=== PATIENT | female | born 1935 | race Caucasian/White ===

== ENCOUNTER → 2017-11-15 13:38 | Observation (INO) ==
[2017-11-14 16:44] VITALS: BMI 32.2
[2017-11-14] MEDS: ENOXAPARIN 40 MG/0.4 ML INJECTION SQ SCH (17:59)
--- NOTE | 2017-11-14 18:06 | Echocardiogram ---
DATE OF PROCEDURE November 14, 2017 This is a two-dimensional echo with spectral Doppler, color-flow and M-mode. It was obtained in a patient with abnormal EKG. This is a technically difficult study. Left atrial dimension is normal. Left ventricular end-diastolic dimension is normal. Left ventricular wall thickness is normal. LV systolic function is normal with ejection fraction of 55%. Right atrium is normal. Right ventricle is normal. Aortic root dimension is normal. Mitral valve is morphologically normal with mild mitral regurgitation. Aortic valve shows fibrocalcific changes with no stenosis or insufficiency. Tricuspid valve shows mild tricuspid regurgitation with normal estimated pulmonary artery systolic pressure of 16. Pulmonary valve shows mild pulmonary insufficiency. There is no pericardial effusion. IMPRESSION 1. Technically difficult study. 2. Normal LV systolic function with ejection fraction of 55%. 3. Mild mitral regurgitation. 4. Aortic sclerosis. 5. Mild tricuspid regurgitation with normal estimated pulmonary artery systolic pressure of 16. 6. Mild pulmonary insufficiency. MTDD
[2017-11-14] MEDS: MEMANTINE 10 MG PO SCH (21:36)
[2017-11-15 07:51] VITALS: TEMP 97.8
[2017-11-15] MEDS: ENOXAPARIN 40 MG/0.4 ML INJECTION SQ SCH (08:46)
[2017-11-15] MEDS: MEMANTINE 10 MG PO SCH (08:52)
--- NOTE | 2017-11-15 12:02 | Discharge Summary ---
Discharge Information Date of admission: 11/14/17 16:10 Anticipated date of discharge: 11/15/17 Attending Physician: Ubaldo Rodriguez MD Primary care physician: Triston Toscano MD abnormal EKG - Laboratory Labs: 11/15/17 04:09 11/15/17 04:09 History of Present Illness HPI: 11/15/17 12:05 Katya is a 82 year old female who was referred to our practice for an abnormal EKG by Melania Beach APRN. She has a history ofdyspnea, HTN, HLD, family history of ischemic heart disease and Lewy body dementia. She denied chest pain, pressure, tightness. Has worsening exertional dyspnea, onset about 1 year ago. Ischemic changes seen and EKG were discussed with Dr. Rodriguez and she was admitted to observation for rule out acute MA. Hospital Course This is a general summary of the patient's hospital course. For more details refer to the complete medical record. Hospital course: Serial troponins were negative - patient is completely asymptomatic -Passed exercise oximetry -Discharge home with outpatient follow up. Time spent with patient: 25 - 35 minutes Resuscitation Status: Full Code Exam Vital signs: Temperature 97.8 F 11/15/17 07:45 Pulse Rate 75 11/15/17 11:01 Respiratory Rate 24 11/15/17 11:01 Blood Pressure 138/110 H 11/15/17 11:01 Pulse Oximetry 96 11/15/17 11:01 - Constitutional no acute distress, well developed, cooperative - Routine HEENT Exam Head: Present: normocephalic ENT: Present: mucous membranes moist - Routine Neck Exam Absent: JVD, carotid bruit - Routine Chest/Breast/Axilla Exam Chest wall: Absent: tenderness - Routine Respiratory Exam Present: CTA bilaterally. Absent: dyspnea, rales, crackles - Routine Cardiovascular Exam Present: RRR, no murmur - Routine Abdominal Exam Present: soft, non tender - Routine Extremities Exam Present: no edema - Routine Skin Exam Present: intact, dry, warm - Routine Neurological Exam Present: alert - Routine Psychiatric Exam Present: normal affect Results 11/15/17 04:09 11/15/17 04:09 Cardiac Enzymes 11/14/17 11/14/17 11/15/17 Range/Units 15:56 22:05 04:09 AST 31 (14-36) U/L Troponin I < 0.012 < 0.012 < 0.012 (0-0.12) ng/ml CBC 11/14/17 11/15/17 Range/Units 15:56 04:09 WBC 7.0 6.3 (4.5-11.0) T/MM3 RBC 5.02 4.85 (4.00-5.20) M/MM3 Hgb 15.9 15.3 (12-16) GM/DL Hct 45.4 44.1 (36-46) % Plt Count 153 146 (130-400) T/MM3 Neut # (Auto) 4.2 (1.8-7.7) T/MM3 Lymph # (Auto) 1.9 (1-4.8) T/MM3 Ocean # (Auto) 0.7 (0-0.8) T/MM3 Eos # (Auto) 0.1 (0-0.5) T/MM3 Baso # (Auto) 0.0 (0-0.2) T/MM3 Comprehensive Metabolic Panel 11/14/17 11/15/17 Range/Units 15:56 04:09 Sodium 144 141 (134-144) MEQ/L Potassium 3.7 3.5 L (3.6-5) MEQ/L Chloride 103 101 (98-107) MEQ/L Carbon Dioxide 27 30 (22-30) MEQ/L BUN 21.0 H 17.0 (7-17) MG/DL Creatinine 0.6 L 0.6 L (0.7-1.2) mg/dL Glucose 105 99 (65-110) MG/DL Calcium 10.7 H 9.9 (8.4-10.2) MG/DL AST 31 (14-36) U/L ALT 34 (1-35) U/L Alkaline Phosphatase 69 (38-126) U/L Total Protein 7.8 (6.3-8.2) g/dL Albumin 4.7 (3.5-5.0) g/dL Intake and Output 11/14/17 11/15/17 11/15/17 22:59 06:59 14:59 Output Total 100 / 100 Balance -100 / -100 Output: Urine 50 / 50 Urine Amount (Catheter) 50 / 50 Other: Urine Appearance Clear Urine Color Yellow Urine Odor Normal # Voids 2 1 3 Weight 165 lb 2.02 oz - Imaging and Cardiology Imaging & Cardiology Narrative: Date of Exam: 11/14/17 Type of Exam(s): US echo doppler complete DATE OF PROCEDURE November 14, 2017 This is a two-dimensional echo with spectral Doppler, color-flow and M-mode. It was obtained in a patient with abnormal EKG. This is a technically difficult study. Left atrial dimension is normal. Left ventricular end-diastolic dimension is normal. Left ventricular wall thickness is normal. LV systolic function is normal with ejection fraction of 55%. Right atrium is normal. Right ventricle is normal. Aortic root dimension is normal. Mitral valve is morphologically normal with mild mitral regurgitation. Aortic valve shows fibrocalcific changes with no stenosis or insufficiency. Tricuspid valve shows mild tricuspid regurgitation with normal estimated pulmonary artery systolic pressure of 16. Pulmonary valve shows mild pulmonary insufficiency. There is no pericardial effusion. IMPRESSION 1. Technically difficult study. 2. Normal LV systolic function with ejection fraction of 55%. 3. Mild mitral regurgitation. 4. Aortic sclerosis. 5. Mild tricuspid regurgitation with normal estimated pulmonary artery systolic pressure of 16. 6. Mild pulmonary insufficiency. 11/17/17 13:58 Discharge Plan - Med Rec/Dispo Referrals/Follow Up: Ubaldo Rodriguez MD [Physician] [facility] Instructions: Myocardial Infarction (DC) Prescriptions: Continue hydroCHLOROthiazide [Hydrochlorothiazide] 25 mg PO DAILY #0 Amlodipine [Norvasc] 10 mg PO DAILY Memantine [Namenda] 10 mg PO BID Citalopram [Celexa] 1.5 tab PO DAILY LORazepam [Ativan] 0.5 mg PO DAILY PRN PRN Reason: Anxiety Aspirin Chewable [ASA] 81 mg PO DAILY Potassium Chloride [Klor-Con M20] 1 tab PO DAILY Hydrocodone/APAP 7.5/325 [[place] 7.5/325] 1 - 2 tab PO Q8H PRN PRN Reason: Pain - Disposition 01 Discharged Home, Self-Care - Dismissal Complete Discharge Instructions are:: Complete
[~2017-11-15 13:38] MED LIST: --POM--AMLODIPINE 10 MG TABLET PO SCH; --POM--CITALOPRAM 20 MG TABLET PO SCH; ASPIRIN 81 MG CHEWABLE TABLET PO SCH; HYDROCODONE/APAP 7.5 MG/325 MG TABLET PO PRN; LORazepam 0.5 MG TABLET PO PRN
[2017-11-15 14:10] VITALS: BP 120/61; PULSE 79; RESP 39; O2SAT 92
== END | disposition home or self-care (01) ==
LOC: CCU
PROVIDERS: ADMIT Internal Medicine Cardiovascular Disease; ATTEND Internal Medicine Cardiovascular Disease

== ENCOUNTER 2017-12-05 13:15 | Inpatient (IN) ==
--- OUTSIDE RECORDS SUMMARY | 2017-12-05 13:29 | External Medical Summary | Referral Summary ---
:1935 Author Organization [facility] (Formerly [facility]3] Address [address] [place] [address] Care Team Providers Name Role Phone No PCP, Pt [place] Primary Care Physician Cydney Aparicio Primary Care Physician No PCP, Pt [facility] Primary Care Physician Larry Vega Primary Care Physician Encounter [facility] [id number] Date(s): 11/06/17 - 11/06/17 [facility]3] [address] [place] [address] [place] Encounter Diagnosis Encounter for staple removal (Discharge Diagnosis) - 11/06/17 Encounter for removal of sutures (Discharge Diagnosis) - 11/06/17 Discharge Disposition: 01-Home or Self Care Attending Physician: Lance Rojas MD Admitting Physician: Lance Rojas MD Vital Signs Most recent to oldest [Reference Range]: 1 Temperature Temporal Artery [36.3-37.8 degC] 36.4 degC (11/06/17 5:17 PM) Peripheral Pulse Rate [60-100 bpm] 77 bpm (11/06/17 5:17 PM) Respiratory Rate [14-20 br/min] 18 br/min (11/06/17 5:17 PM) Blood Pressure [90-140/60-90 mmHg] 132/77 mmHg (11/06/17 5:17 PM) SpO2 94 % (11/06/17 5:17 PM) Problem List Condition Effective Dates Status Health Status Informant Benign essential hypertension Active (disorder)(Confirmed) Wolf's C colon cancer(Confirmed) 2001 Active Colon cancer(Confirmed)1 07/03/01 Resolved CAD (coronary artery Active disease)(Confirmed) Generalized Active osteoarthritis(Confirmed) Edema (finding)(Confirmed) Active Stress incontinence, Active female(Confirmed) H/O hypercalcemia(Confirmed) Active History of colon cancer(Confirmed) Active History of tobacco use(Confirmed) Active Myoclonus (finding)(Confirmed) Active Obesity(Confirmed) Active patient Dermatophytosis of nail(Confirmed) Active Otalgia (finding)(Confirmed) Active Otorrhea (disorder)(Confirmed) Active Pain in limb(Confirmed) Active Pure hypercholesterolemia Active (disorder)(Confirmed) Retinal tear(Confirmed)2 07/03/93 Resolved 1[facility] Allergies, Adverse Reactions, Alerts No Known Medication Allergies Medications amLODIPine 10 mg oral tablet See Instructions, TAKE 1/2 TABLET EVERY DAY, # 45 tabs, eRx: [facility], TAKE 1/2TABLET EVERY DAY Start Date: 03/24/15 Status: Orderedaspirin 81 mg, Oral, Daily, 0 Refill(s) Start Date: 12/19/13 Status: Orderedcitalopram 10 mg oral tablet 10 mg 1 tabs, Oral, Daily, # 30 tabs, 0 Refill(s) Start Date: 04/20/16 Status: OrderedFish Oil 2 tabs, Oral, Daily, 0 Refill(s) Start Date: 12/19/13 Status: Orderedhydrochlorothiazide 25 mg oral tablet See Instructions, TAKE 1 TABLET EVERY DAY, # 90 tabs, 1 Refill(s), eRx: [facility], TAKE 1 TABLET EVERY DAY Start Date: 01/28/15 Status: OrderedHYDROcodone-acetaminophen 7.5 mg-325 mg oral tablet 1-2 tabs, Oral, q8hr, as needed for pain, # 100 tabs, 0 Refill(s) Start Date: 03/16/15 Status: Orderedmagnesium oxide 400 mg, Oral, Daily, 0 Refill(s) Start Date: 12/19/13 Status: Orderedmultivitamin 1 tabs, Oral, Daily, 0 Refill(s) Start Date: 12/24/13 Status: Orderedpotassium chloride 10 mEq oral capsule, extended release See Instructions, TAKE 1 CAPSULE EVERY DAY, # 90 caps, eRx: [facility], TAKE 1 CAPSULE EVERY DAY Start Date: 04/07/15 Status: OrderedVitamin D3 1000 intl units oral tablet 1 tabs, Oral, Daily, # 30 tabs, 0 Refill(s) Start Date: 12/24/13 Status: OrderedZocor 40 mg oral tablet See Instructions, TAKE 1 TABLET AT BEDTIME, # 90 tabs, eRx: [facility], TAKE1 TABLET AT BEDTIME Start Date: 01/12/15 Status: Ordered Immunizations Given and Recorded Vaccine Date Status Refusal Reason tetanus/diphth/pertuss (Tdap) adult/adol 10/27/17 Given pneumococcal 23-polyvalent vaccine 07/09/02 Recorded tetanus-diphth toxoids (Td) adult/adol 05/22/00 Recorded Procedures Procedure Date Related Diagnosis Body Site Status Mammogram 03/27/14 Completed Bone densimetry normal 03/11/14 Completed Colonoscopy1 10/14/13 Completed Colonoscopy 10/04/13 Completed Vaginal Pap smear 10/08/07 Completed Colonoscopy 10/17/02 Completed right hemicolectomy 07/03/01 Completed Cancer surgery, colon 2001 Completed Cataract extraction, left2 1993 Completed Left retinal tear3 1993 Completed Bilateral tubal ligation Completed Knee replacement, left4 Completed 1hyperplastic polyp, diverticula, repeat in 5 yrs.2left [id number] conversion [id number] Social History Social History Type Response Smoking Status Former smoker; Type: Cigarettes; Tobacco use per day: 1 Pack; Number of years: 46; Total pack years: 46; Started at age: 18; Stopped at age: 64; entered on: 01/22/14
[2017-12-05] MEDS: SALINE FLUSH 10ml SYRINGE IVF PRN (13:30)
[2017-12-05] MEDS ORDERED: ASPIRIN 81 MG CHEWABLE TABLET PO ONE (13:45)
[2017-12-05] MEDS: NITROGLYCERIN 0.4 MG SUBLINGUAL TABLET SL PRN ×2 (14:03→14:10)
--- NOTE | 2017-12-05 14:35 | XRay Report ---
Indication: chest pain PROCEDURE: XR chest 1V: Encounter: Initial Comparison: None FINDINGS: The lungs are clear. There is no abnormal airspace opacity, pleural effusion or pneumothorax identified. The heart size, pulmonary vasculature and mediastinum are within normal limits. Degenerative change in the shoulders. IMPRESSION: No acute cardiopulmonary abnormality. .
--- NOTE | 2017-12-05 15:47 | Emergency Department Report ---
Chest Pain HPI - General Chief Complaint: Chest Pain Stated Complaint: chest discomfort,soa, both arm pain Time Seen by Provider: 12/05/17 13:17 - Related Data Home Medications Medication Instructions Recorded Confirmed hydroCHLOROthiazide 25 mg PO DAILY #0 09/25/08 12/05/17 [Hydrochlorothiazide] Amlodipine [Norvasc] 10 mg PO DAILY 11/14/17 12/05/17 Aspirin Chewable [ASA] 81 mg PO DAILY 11/14/17 12/05/17 Citalopram [Celexa] 30 mg PO DAILY 11/14/17 12/05/17 Hydrocodone/APAP 7.5/325 [[place] 1 - 2 tab PO Q8H PRN 11/14/17 12/05/17 7.5/325] LORazepam [Ativan] 0.5 mg PO DAILY PRN 11/14/17 12/05/17 Memantine [Namenda] 10 mg PO BID 11/14/17 12/05/17 Potassium Chloride [Klor-Con M20] 20 meq PO DAILY 11/14/17 12/05/17 Ascorbic Acid [Vitamin C] 500 mg PO DAILY 12/05/17 12/05/17 Cholecalciferol (Vitamin D3) 1,000 unit PO DAILY 12/05/17 12/05/17 [Vitamin D3] Fish Oil/Dha/Epa [Fish Oil 1,200 1,200 mg PO DAILY 12/05/17 12/05/17 mg Fish Oil] Folic Acid/Mv,Iron,Min [One Daily 1 tab PO DAILY 12/05/17 12/05/17 For Women Tablet] Sennosides 8.6 mg PO DAILY PRN 12/05/17 12/05/17 Allergies Allergy/AdvReac Type Severity Reaction Status Date / Time Unclassified Drug Allergy Severe CLEANING Uncoded 12/05/17 14:14 AGENTS: SEIZURE/RASH [facility] Patient Stated Medical History Other HEENT Yes: retinas detatched and replaced Angina Yes: last night 11/13/17 Hx Urinary Tract Infection Yes Other Musculoskeletal Yes: TIA or short bouts of going to sleep Other Behavioral Health Yes: bradley body dementia Post Menopausal Yes - Social History Smoking status: Former smoker Course Vital Signs Temperature 98 F 12/05/17 13:17 Pulse Rate 104 H 12/05/17 13:17 Respiratory Rate 20 12/05/17 13:17 Blood Pressure 130/77 12/05/17 13:17 Pulse Oximetry 91 12/05/17 13:17 Temperature 98 F 12/05/17 13:17 Pulse Rate 75 12/05/17 15:15 Respiratory Rate 24 12/05/17 15:15 Blood Pressure 116/58 12/05/17 15:15 Pulse Oximetry 94 12/05/17 15:15 Chest Pain - MDM Narrative Medical decision making narrative: Cardiac labs returned negative, EKG does show previous event. Patient visited with Dr. Ramirez and is being admitted for observation overnight with plan for angiogram in the a.m. - Lab Data Result diagrams: 12/05/17 13:34 12/05/17 13:34 Lab Results 12/05/17 12/05/17 12/05/17 Range/Units 13:34 13:34 13:34 WBC 6.0 (4.5-11.0) T/MM3 RBC 5.21 H (4.00-5.20) M/MM3 Hgb 16.3 H (12-16) GM/DL Hct 46.8 H (36-46) % MCV 89.8 (80-100) UM3 MCH 31.3 (26-34) UUG MCHC 34.8 (31-37) GM/DL RDW Std Deviation 41.0 (36.9-50.2) FL Plt Count 172 (130-400) T/MM3 MPV 11.5 (9.4-12.4) UM3 Immature Gran % (Auto) 0.2 (0.0-0.5) % Neut % (Auto) 56.3 (33-66) % Lymph % (Auto) 29.3 (23-45) % Cottle % (Auto) 10.4 H (0-9.0) % Eos % (Auto) 3.5 (0-4) % Baso % (Auto) 0.3 (0-2) % Neut # (Auto) 3.4 (1.8-7.7) T/MM3 Lymph # (Auto) 1.8 (1-4.8) T/MM3 Cottle # (Auto) 0.6 (0-0.8) T/MM3 Eos # (Auto) 0.2 (0-0.5) T/MM3 Baso # (Auto) 0.0 (0-0.2) T/MM3 Abs Immat Gran (auto) 0.01 (0.00-0.03) T/MM3 D-Dimer 150 (0-230) NG/ML Turbidity < 20 (0-20) Sodium 143 (134-144) MEQ/L Potassium 3.5 L (3.6-5) MEQ/L Chloride 100 (98-107) MEQ/L Carbon Dioxide 30 (22-30) MEQ/L Anion Gap 13 (5-15) meq/L BUN 14.0 (7-17) MG/DL Creatinine 0.6 L (0.7-1.2) mg/dL GFR Calculation 96 BUN/Creatinine Ratio 23 (6-26) RATIO Glucose 105 (65-110) MG/DL Calculated Osmolality 276 (261-280) MOSM/KG Calcium 11.0 H (8.4-10.2) MG/DL Total Bilirubin 0.90 (0.20-1.30) MG/DL Icterus Index < 2 (0-7) AST 33 (14-36) U/L ALT 35 (1-35) U/L Alkaline Phosphatase 70 (38-126) U/L Troponin I < 0.012 (0-0.12) ng/ml NT-Pro-B Natriuret Pep 53.2 (0-175) pg/mL Total Protein 7.8 (6.3-8.2) g/dL Albumin 4.5 (3.5-5.0) g/dL Globulin 3.3 (2.4-3.6) G/DL Albumin/Globulin Ratio 1.4 (1.1-2.2) RATIO Specimen Hemolysis < 15 (0-25) - EKG Data EKG #1 EKG attestation: Yes: I reviewed and interpreted this EKG. EKG results narrative: 103 bpm EKG shows normal: sinus rhythm Rate: tachycardia Rhythm: NSR [place]/QRS: left axis deviation Q waves: v3, v4 Interpretation: nonspecific ST-T wave changes Disposition Prescriptions: No Action hydroCHLOROthiazide [Hydrochlorothiazide] 25 mg PO DAILY #0 Amlodipine [Norvasc] 10 mg PO DAILY Memantine [Namenda] 10 mg PO BID Citalopram [Celexa] 30 mg PO DAILY LORazepam [Ativan] 0.5 mg PO DAILY PRN PRN Reason: Anxiety Aspirin Chewable [ASA] 81 mg PO DAILY Potassium Chloride [Klor-Con M20] 20 meq PO DAILY Hydrocodone/APAP 7.5/325 [[place] 7.5/325] 1 - 2 tab PO Q8H PRN PRN Reason: Pain Folic Acid/Mv,Iron,Min [One Daily For Women Tablet] 1 tab PO DAILY Fish Oil/Dha/Epa [Fish Oil 1,200 mg Fish Oil] 1,200 mg PO DAILY Cholecalciferol (Vitamin D3) [Vitamin D3] 1,000 unit PO DAILY Sennosides 8.6 mg PO DAILY PRN PRN Reason: Constipation Ascorbic Acid [Vitamin C] 500 mg PO DAILY Referrals: Triston Toscano MD [Primary Care Provider] -
[2017-12-05] MEDS ORDERED: MORPHINE SULFATE 10mg/ml INJECTION IVP PRN (16:41)
[2017-12-05 16:57] VITALS: BMI 33.6
--- NOTE | 2017-12-05 17:04 | Cardiology History & Physical ---
History of Present Illness Chief complaint: chest pain, SOA HPI: Katya is a 82 year old female who is well known to Dr. Rodriguez with a recent history of abnormal EKG who was seen in clinic on 11/14/17 and admitted directly for further evaluation of abnormal EKG. She was ruled out as she was asymptomatic and serial troponin levels were negative. She was scheduled to follow up with Dr. Rodriguez today, however she began having sternal chest pain and worsening SOA this morning and presented to the ED for evaluation. She has a history of dyspnea, HTN, HLD, Lewy body dementia. Dr. Rodriguez was contacted for admission from the ED for rule out PR. Review of Systems - Constitutional Constitutional: Present: weakness. Absent: chills, fatigue, fever(s) - EENMT Eyes: Absent: change in vision Balance: Absent: vertigo Mouth/Throat: Absent: sore throat - Cardiovascular Cardiovascular: Present: chest pain, dyspnea on exertion. Absent: palpitations , syncope, orthopnea, edema, heart murmur Rhythm: Absent: abnormal rhythm Vascular: Absent: pedal edema - Respiratory Respiratory: Present: dyspnea, dyspnea on exertion, wheezing. Absent: cough - Gastrointestinal Gastrointestinal: Absent: abdominal pain, constipation, diarrhea, nausea, vomiting - Genitourinary Genitourinary: Absent: dysuria - Integumentary/Breasts Integumentary: Absent: rash - Neurological Neurological: Absent: dizziness, vertigo - Endocrine Endocrine: Absent: palpitations PFSH HTN HLD Lewy body dementia. Surgical History: carpel tunnel, bilateral. colon resection. bilateral knee replacement Family History: Father - CV disease Sister - Ovarian Cancer - Social History Smoking status: Former smoker Substance use type: does not use Alcohol intake frequency: does not drink Housing: house Household members: children Current occupational status: retired Current residence: Apartment/Private Home Medications Home Medications Medication Instructions Recorded Confirmed Type hydroCHLOROthiazide 25 mg PO DAILY #0 09/25/08 12/05/17 History [Hydrochlorothiazide] Amlodipine [Norvasc] 10 mg PO DAILY 11/14/17 12/05/17 History Aspirin Chewable [ASA] 81 mg PO DAILY 11/14/17 12/05/17 History Citalopram [Celexa] 30 mg PO DAILY 11/14/17 12/05/17 History Hydrocodone/APAP 7.5/325 [[place] 1 - 2 tab PO Q8H PRN 11/14/17 12/05/17 History 7.5/325] LORazepam [Ativan] 0.5 mg PO DAILY PRN 11/14/17 12/05/17 History Memantine [Namenda] 10 mg PO BID 11/14/17 12/05/17 History Potassium Chloride [Klor-Con M20] 20 meq PO DAILY 11/14/17 12/05/17 History Ascorbic Acid [Vitamin C] 500 mg PO DAILY 12/05/17 12/05/17 History Cholecalciferol (Vitamin D3) 1,000 unit PO DAILY 12/05/17 12/05/17 History [Vitamin D3] Fish Oil/Dha/Epa [Fish Oil 1,200 1,200 mg PO DAILY 12/05/17 12/05/17 History mg Fish Oil] Folic Acid/Mv,Iron,Min [One Daily 1 tab PO DAILY 12/05/17 12/05/17 History For Women Tablet] Sennosides 8.6 mg PO DAILY PRN 12/05/17 12/05/17 History Atorvastatin [Lipitor] 40 mg PO HS #30 tab 12/07/17 Rx Ticagrelor [Brilinta] 90 mg PO BID #60 tab 12/07/17 Rx Allergies Allergy/AdvReac Type Severity Reaction Status Date / Time Unclassified Drug Allergy Severe CLEANING Uncoded 12/05/17 14:14 AGENTS: SEIZURE/RASH Exam Vital signs: Temperature 98 F 12/05/17 13:17 Pulse Rate 73 12/05/17 16:33 Respiratory Rate 20 12/05/17 16:33 Blood Pressure 124/69 12/05/17 16:33 Pulse Oximetry 96 12/05/17 16:33 - Constitutional no acute distress, well nourished, cooperative - Routine HEENT Exam Head: Present: normocephalic ENT: Present: mucous membranes moist - Routine Neck Exam Absent: JVD, carotid bruit - Routine Chest/Breast/Axilla Exam Chest wall: Absent: tenderness, pacemaker - Routine Respiratory Exam Present: CTA bilaterally. Absent: dyspnea, rales, wheezes - Routine Cardiovascular Exam Present: no murmur, tachycardia - Routine Abdominal Exam Present: soft, non tender - Routine Extremities Exam Present: no edema - Routine Skin Exam Present: intact, dry, warm - Routine Neurological Exam Present: alert, oriented X3 - Routine Psychiatric Exam Present: normal affect, normal thought process Results 12/07/17 05:03 12/07/17 05:03 Intake and Output 12/05/17 12/05/17 12/05/17 06:59 14:59 22:59 Other: Weight 166 lb 10.711 oz Patient Weight 12/06/17 06:59 Weight 166 lb 10.711 oz EKG interpretations - EKG EKG results cardiology: sinus rhythm EKG shows: tachycardia - PR, pacemaker, normal Myocardial infarction: anterior PR (old age or indeterminate) Hospital Course This is a general summary of the patient's hospital course. For more details refer to the complete medical record. Time spent with patient: 25 - 35 minutes Resuscitation Status: Full Code Assessment and Plan - Attestation Attestation Narrative: 12/13/17 13:30 Recommendation After examining the patient I agree with the above assessment. I am involved in the formulation of the patient's plan of care. - Assessment and Plan (1) Precordial chest pain Status: Acute 2nd admission in last 3 weeks - Unstable angina - Trend serial troponin levels - Repeat EKG in am - Plan left heart cath with possible PCI in the afternoon tomorrow - NPO except for medications after Midnight (2) Abnormal electrocardiogram Status: Acute (3) Dyspnea Status: Chronic (4) Essential (primary) hypertension Status: Chronic Continue Amlodipine (5) Mixed hyperlipidemia Status: Chronic Atorvastatin 40mg every HS (6) Family history of ischemic heart disease and other diseases of the circulatory system Status: Chronic (7) Dementia with Lewy bodies Status: Chronic
[2017-12-05] MEDS ORDERED: SENNOSIDES 8.6 MG PO PRN (17:40)
[2017-12-05] MEDS ORDERED: HYDROCODONE/APAP 7.5 MG/325 MG TABLET PO PRN (17:40)
[2017-12-05] MEDS ORDERED: LORazepam 0.5 MG TABLET PO PRN (17:40)
[2017-12-05] MEDS: MEMANTINE 10 MG PO SCH (21:02)
[2017-12-06] MEDS: SALINE FLUSH 10ml SYRINGE IVF PRN (07:32)
[2017-12-06] MEDS ORDERED: LIDOCAINE 1% (10mg/ml) 30ml SDV INJ ONE (08:25)
[2017-12-06] MEDS ORDERED: MIDAZOLAM 2mg/2ml INJECTION ONE (08:25)
[2017-12-06] MEDS ORDERED: HEPARIN 1,000 UNITS/500 ML PREMIX (*CVL ONLY*) IV ONE (08:25)
[2017-12-06] MEDS ORDERED: FentaNYL 100 MCG/2 ML INJECTION ONE (08:25)
[2017-12-06] MEDS ORDERED: HEPARIN 1,000unit/ml INJECTION 10ml ONE (08:30)
[2017-12-06] MEDS ORDERED: Verapamil 5 MG/2 ML VIAL ONE (08:30)
[2017-12-06] MEDS ORDERED: NITROGLYCERIN 50MG INJECTION IV ONE (08:30)
[2017-12-06] MEDS ORDERED: NS 1,000 ML ONE (08:40)
[2017-12-06] MEDS ORDERED: TICAGRELOR 90 MG TABLET ONE (08:59)
[2017-12-06] MEDS ORDERED: ASPIRIN 81 MG CHEWABLE TABLET ONE (08:59)
[2017-12-06] MEDS ORDERED: ONDANSETRON 4 MG/2 ML INJECTION IVP PRN (09:19)
[2017-12-06] MEDS ORDERED: METOCLOPRAMIDE 10mg/2ml INJECTION IVP PRN (09:19)
[2017-12-06] MEDS ORDERED: MORPHINE SULFATE 4mg INJECTION IVP PRN ×2 (09:19)
[2017-12-06] MEDS ORDERED: BISACODYL 10 MG SUPPOSITORY RECTALLY PRN (09:19)
[2017-12-06] MEDS ORDERED: ATROPINE 1 MG/ML INJECTION IVP PRN (09:19)
[2017-12-06] MEDS ORDERED: LORazepam 0.5 MG TABLET PO PRN (09:19)
[2017-12-06] MEDS ORDERED: ACETAMINOPHEN 325 MG TABLET PO PRN (09:19)
[2017-12-06] MEDS ORDERED: NITROGLYCERIN 0.4 MG SUBLINGUAL TABLET SL PRN (09:19)
[2017-12-06] MEDS ORDERED: HYDROCODONE/APAP 7.5 MG/325 MG TABLET PO PRN (09:19)
[2017-12-06] MEDS ORDERED: PROMETHAZINE 25 MG INJECTION IVP PRN (09:19)
[2017-12-06] MEDS ORDERED: Bisacodyl EC TAB 5 MG TABLET PO PRN (09:19)
[2017-12-06] MEDS ORDERED: MAG-AL + SIM ORAL LIQUID 30ml PO PRN (09:19)
--- NOTE | 2017-12-06 13:56 | Cardiac Catheterization Report ---
DATE OF PROCEDURE December 06, 2017 INDICATIONS The patient is a pleasant 82-year-old lady who was admitted with chest pressure and tightness suggestive of angina and this is her second admission and was referred for further evaluation by cardiac catheterization and possible intervention. INFORMED CONSENT Informed consent was obtained after explaining the procedure and the potential risks to the patient who agreed to proceed with the procedure. PROCEDURE 1. Left heart catheterization. 2. Coronary angiography. 3. Left ventriculography. 4. PTCA and stent of the RCA using a 3.0 x 15 drug-eluting Resolute Kai stent. 5. Right femoral angiography to visualize the vessel for closure device. 6. Successful Mynx deployment for hemostasis. TECHNIQUE She was prepped and draped in the usual sterile techniques. Conscious sedation was performed using Versed and fentanyl. 1% lidocaine was used for local anesthesia. Using modified Seldinger technique, arterial access was obtained into the right femoral artery with placement of a 6-Khmer arterial sheath. She received 6000 units of heparin, 180 mg of Brilinta and 81 mg of aspirin prior to intervention. LEFT VENTRICULOGRAPHY Left ventriculography in single-plane JOHN shallow projection showed normal LV systolic function with ejection fraction of about 65% with mild to moderate mitral regurgitation, however it appeared to be PVC-induced. There was no gradient across the aortic valve. LVEDP was anywhere from 14-18. CORONARY ANGIOGRAPHY Left main was free of significant lesions. The left anterior descending artery had diffuse irregularities. Distally, it lorenzana down to a small caliber vessel with diffuse disease. Distally it is about 1 mm in diameter. There is one diagonal coming off of the LAD which appears to be free of significant lesions with minor irregularities. LAD is mild to moderately calcified. Left circumflex artery has diffuse irregularities with about 30% stenosis in distal third of the vessel. First marginal was quite small, less than 1 mm in diameter. Second marginal was also quite small and less than 1 mm in diameter. Third marginal was about 2 mm in diameter with mild disease throughout. Right coronary artery is dominant and medium caliber vessel. 90% proximal RCA stenosis is present. After reviewing the images, we decided to proceed with intervention on RCA. A 6 -Khmer JR-4 with side holes was advanced to the ostium of the RCA. A Runthrough wire was used to cross the lesion into distal RCA. Initially we tried to proceed with direct stent deployment. A 3.0 x 15 drug-eluting Resolute [place] stent was delivered over the wire, however it would not cross the lesion. We changed our stent for a 3.0 x 12 balloon which was delivered to the lesion site and inflated up to 10 atmospheres. Next, the balloon was exchanged for a 3.0 x 15 drug-eluting Resolute [place] stent which was delivered to the lesion site and deployed by inflating the balloon to 18 atmospheres. Next angiogram showed excellent results with no residual stenosis. Right femoral angiography showed patent common femoral, proximal SFA and profunda and therefore Mynx was used for hemostasis. IMPRESSION 1. Normal LV systolic function with ejection fraction of about 65%. 2. Mild to moderate mitral regurgitation, however, this appears to be PVC- induced. 3. Coronary artery disease as described above with high-grade RCA stenosis. 4. Successful PTCA and stent of the RCA using a 3.0 x 15 drug-eluting Resolute [place] stent. 5. Successful Mynx deployment for hemostasis. PLAN Will keep her on dual antiplatelet therapy at least for one year and continue risk modification. PARVEEN
[2017-12-06] MEDS: ASCORBIC ACID 500 MG PO SCH (14:46)
[2017-12-06] MEDS: POM AMLODIPINE 10 MG TABLET PO SCH (14:46)
[2017-12-06] MEDS: POM ASPIRIN *EC* 81 MG TABLET PO SCH (14:47)
[2017-12-06] MEDS: POM CITALOPRAM 20 MG TABLET PO SCH (14:48)
[2017-12-06] MEDS: VITAMIN D 1000 UNIT PO SCH (14:48)
[2017-12-06] MEDS: MEMANTINE 10 MG PO SCH ×2 (14:49→20:35)
[2017-12-06] MEDS ORDERED: NS 1,000 ML IV SCH (15:30)
[2017-12-06 16:21] VITALS: TEMP 98.3
[2017-12-06] MEDS ORDERED: FALL RISK - PHARMACY CONSULT MC ONE (17:53)
[2017-12-06] MEDS: TICAGRELOR 90 MG TABLET PO SCH (20:34)
[2017-12-06] MEDS ORDERED: ATORVASTATIN 40 MG TABLET PO SCH (21:00)
[2017-12-07] MEDS: ASCORBIC ACID 500 MG PO SCH (08:29)
[2017-12-07] MEDS: POM AMLODIPINE 10 MG TABLET PO SCH (08:29)
[2017-12-07] MEDS: VITAMIN D 1000 UNIT PO SCH (08:30)
[2017-12-07] MEDS: POM ASPIRIN *EC* 81 MG TABLET PO SCH (08:30)
[2017-12-07] MEDS: MEMANTINE 10 MG PO SCH (08:31)
[2017-12-07] MEDS: POM CITALOPRAM 20 MG TABLET PO SCH (08:32)
[2017-12-07] MEDS: TICAGRELOR 90 MG TABLET PO SCH (08:33)
[2017-12-07] MEDS ORDERED: ASPIRIN *EC* 81 MG TABLET PO SCH (09:00)
--- NOTE | 2017-12-07 11:43 | Discharge Summary ---
<Ginny Silva - Last Filed: 12/08/17 10:44> Discharge Information Date of admission: 12/07/17 08:12 Anticipated date of discharge: 12/07/17 Attending Physician: Ubaldo Rodriguez MD Primary care physician: Triston Toscano MD - Discharge Diagnosis (1) Precordial chest pain Status: Acute (2) Abnormal electrocardiogram Status: Acute (3) Dyspnea Status: Chronic (4) Essential (primary) hypertension Status: Chronic (5) Mixed hyperlipidemia Status: Chronic (6) Family history of ischemic heart disease and other diseases of the circulatory system Status: Chronic (7) Dementia with Lewy bodies Status: Chronic CAD - Procedures Procedures: Date of Exam: 12/06/17 Type of Exam(s): CA heart cath LT DATE OF PROCEDURE December 06, 2017 INDICATIONS The patient is a pleasant 82-year-old lady who was admitted with chest pressure and tightness suggestive of angina and this is her second admission and was referred for further evaluation by cardiac catheterization and possible intervention. INFORMED CONSENT Informed consent was obtained after explaining the procedure and the potential risks to the patient who agreed to proceed with the procedure. PROCEDURE 1. Left heart catheterization. 2. Coronary angiography. 3. Left ventriculography. 4. PTCA and stent of the RCA using a 3.0 x 15 drug-eluting Resolute [place] stent. 5. Right femoral angiography to visualize the vessel for closure device. 6. Successful Mynx deployment for hemostasis. TECHNIQUE She was prepped and draped in the usual sterile techniques. Conscious sedation was performed using Versed and fentanyl. 1% lidocaine was used for local anesthesia. Using modified Seldinger technique, arterial access was obtained into the right femoral artery with placement of a 6-Niuean arterial sheath. She received 6000 units of heparin, 180 mg of Brilinta and 81 mg of aspirin prior to intervention. LEFT VENTRICULOGRAPHY Left ventriculography in single-plane JOHN shallow projection showed normal LV systolic function with ejection fraction of about 65% with mild to moderate mitral regurgitation, however it appeared to be PVC-induced. There was no gradient across the aortic valve. LVEDP was anywhere from 14-18. CORONARY ANGIOGRAPHY Left main was free of significant lesions. The left anterior descending artery had diffuse irregularities. Distally, it lorenzana down to a small caliber vessel with diffuse disease. Distally it is about 1 mm in diameter. There is one diagonal coming off of the LAD which appears to be free of significant lesions with minor irregularities. LAD is mild to moderately calcified. Left circumflex artery has diffuse irregularities with about 30% stenosis in distal third of the vessel. First marginal was quite small, less than 1 mm in diameter. Second marginal was also quite small and less than 1 mm in diameter. Third marginal was about 2 mm in diameter with mild disease throughout. Right coronary artery is dominant and medium caliber vessel. 90% proximal RCA stenosis is present. After reviewing the images, we decided to proceed with intervention on RCA. A 6 -Niuean JR-4 with side holes was advanced to the ostium of the RCA. A Runthrough wire was used to cross the lesion into distal RCA. Initially we tried to proceed with direct stent deployment. A 3.0 x 15 drug-eluting Resolute [place] stent was delivered over the wire, however it would not cross the lesion. We changed our stent for a 3.0 x 12 balloon which was delivered to the lesion site and inflated up to 10 atmospheres. Next, the balloon was exchanged for a 3.0 x 15 drug-eluting Resolute Kai stent which was delivered to the lesion site and deployed by inflating the balloon to 18 atmospheres. Next angiogram showed excellent results with no residual stenosis. Right femoral angiography showed patent common femoral, proximal SFA and profunda and therefore Mynx was used for hemostasis. IMPRESSION 1. Normal LV systolic function with ejection fraction of about 65%. 2. Mild to moderate mitral regurgitation, however, this appears to be PVC- induced. 3. Coronary artery disease as described above with high-grade RCA stenosis. 4. Successful PTCA and stent of the RCA using a 3.0 x 15 drug-eluting Resolute [place] stent. 5. Successful Mynx deployment for hemostasis. PLAN Will keep her on dual antiplatelet therapy at least for one year and continue risk modification. History of Present Illness HPI: Katya is a 82 year old female who is well known to Dr. Rodriguez with a recent history of abnormal EKG who was seen in clinic on 11/14/17 and admitted directly for further evaluation of abnormal EKG. She was ruled out as she was asymptomatic and serial troponin levels were negative. She was scheduled to follow up with Dr. Rodriguez today, however she began having sternal chest pain and worsening SOA this morning and presented to the ED for evaluation. She has a history of dyspnea, HTN, HLD, Lewy body dementia. Dr. Rodriguez was contacted for admission from the ED for rule out MO. Hospital Course This is a general summary of the patient's hospital course. For more details refer to the complete medical record. Hospital course: Precordial chest pain Current visit: Yes Status: Acute 2nd admission in last 3 weeks - Unstable angina - Trend serial troponin levels - Repeat EKG in am - Plan left heart cath with possible PCI in the afternoon tomorrow - NPO except for medications after Midnight Abnormal electrocardiogram Current visit: Yes Status: Acute Dyspnea Current visit: Yes Status: Chronic Essential (primary) hypertension Current visit: Yes Status: Chronic Continue Amlodipine Mixed hyperlipidemia Current visit: Yes Status: Chronic Atorvastatin 40mg every HS Family history of ischemic heart disease and other diseases of the circulatory system Current visit: Yes Status: Chronic Dementia with Lewy bodies Current visit: Yes Status: Chronic Time spent with patient: 25 - 35 minutes Resuscitation Status: Full Code Exam Vital signs: Temperature 98.3 F 12/06/17 23:15 Pulse Rate 95 12/07/17 09:00 Respiratory Rate 20 12/07/17 06:15 Blood Pressure 141/76 H 12/07/17 06:00 Pulse Oximetry 90 12/07/17 06:15 - Constitutional no acute distress, well nourished, cooperative - Routine HEENT Exam Head: Present: normocephalic ENT: Present: mucous membranes moist - Routine Neck Exam Absent: JVD, carotid bruit - Routine Chest/Breast/Axilla Exam Chest wall: Absent: tenderness - Routine Respiratory Exam Present: CTA bilaterally. Absent: dyspnea, rales, wheezes - Routine Cardiovascular Exam Present: RRR, no murmur - Routine Abdominal Exam Present: soft, non tender - Routine Extremities Exam Present: no edema, pulses intact - Routine Skin Exam Present: intact, dry, warm - Routine Neurological Exam Present: alert, oriented X3 - Routine Psychiatric Exam Present: normal affect, normal thought process Results 12/07/17 05:03 12/07/17 05:03 Intake and Output 12/06/17 12/07/17 12/07/17 22:59 06:59 14:59 Output Total 100 / 200 Balance -100 / -200 Output: Urine 100 / 200 Other: Urine Appearance Clear Urine Color Dark Yellow Urine Odor Normal Stool Color Brown Stool Consistency Soft Formed Size of Bowel Movement Moderate # Bowel Movements 1 - Imaging and Cardiology Imaging & Cardiology Narrative: Date of Exam: 12/05/17 Ordering Provider: Topher Huang MD Type of Exam(s): XR chest 1V Reason for Exam(s): chest pain Indication: chest pain PROCEDURE: XR chest 1V: Encounter: Initial Comparison: None FINDINGS: The lungs are clear. There is no abnormal airspace opacity, pleural effusion or pneumothorax identified. The heart size, pulmonary vasculature and mediastinum are within normal limits. Degenerative change in the shoulders. IMPRESSION: No acute cardiopulmonary abnormality. 12/07/17 11:41 Discharge Plan - Med Rec/Dispo Referrals/Follow Up: Ubaldo Rodriguez MD [Physician] - 12/28/17 9:00 am [place] Instructions: [facility] [place] Prescriptions: New Ticagrelor [Brilinta] 90 mg PO BID #60 tab Atorvastatin [Lipitor] 40 mg PO HS #30 tab Continue hydroCHLOROthiazide [Hydrochlorothiazide] 25 mg PO DAILY #0 Amlodipine [Norvasc] 10 mg PO DAILY Memantine [Namenda] 10 mg PO BID Citalopram [Celexa] 30 mg PO DAILY LORazepam [Ativan] 0.5 mg PO DAILY PRN PRN Reason: Anxiety Aspirin Chewable [ASA] 81 mg PO DAILY Potassium Chloride [Klor-Con M20] 20 meq PO DAILY Hydrocodone/APAP 7.5/325 [Bacova 7.5/325] 1 - 2 tab PO Q8H PRN PRN Reason: Pain Folic Acid/Mv,Iron,Min [One Daily For Women Tablet] 1 tab PO DAILY Fish Oil/Dha/Epa [Fish Oil 1,200 mg Fish Oil] 1,200 mg PO DAILY Cholecalciferol (Vitamin D3) [Vitamin D3] 1,000 unit PO DAILY Sennosides 8.6 mg PO DAILY PRN PRN Reason: Constipation Ascorbic Acid [Vitamin C] 500 mg PO DAILY - Disposition 01 Discharged Home, Self-Care - Dismissal Complete Discharge Instructions are:: Complete <Ubaldo Rodriguez - Last Filed: 12/13/17 13:42> Discharge Information Date of admission: 12/07/17 08:12 Attending Physician: Ubaldo Rodriguez MD Primary care physician: Triston Toscano MD - Discharge Diagnosis (1) Precordial chest pain Status: Acute (2) Abnormal electrocardiogram Status: Acute (3) Dyspnea Status: Chronic (4) Essential (primary) hypertension Status: Chronic (5) Mixed hyperlipidemia Status: Chronic (6) Family history of ischemic heart disease and other diseases of the circulatory system Status: Chronic (7) Dementia with Lewy bodies Status: Chronic Hospital Course This is a general summary of the patient's hospital course. For more details refer to the complete medical record. Exam Vital signs: Temperature 98.3 F 12/06/17 23:15 Pulse Rate 97 12/07/17 13:00 Respiratory Rate 46 H 12/07/17 13:00 Blood Pressure 141/78 H 12/07/17 13:00 Pulse Oximetry 92 12/07/17 13:00 Results 12/07/17 05:03 12/07/17 05:03 Attestation Narriative - Attestation Attestation Narrative: 12/13/17 13:41 Recommendation After examining the patient I agree with the above assessment. I am involved in the formulation of the patient's plan of care.
[2017-12-07 14:05] VITALS: BP 141/78; PULSE 97; RESP 46; O2SAT 92
== END 2017-12-07 13:55 | disposition home or self-care (01) | DRG 247 ==
LOC: SRG 13:15 → ED 13:15 → SRG 16:40 → CCU 12-06 09:25
PROVIDERS: ADMIT Internal Medicine Cardiovascular Disease; ATTEND Internal Medicine Cardiovascular Disease